=== PATIENT | female | born 1990 | race Caucasian/White ===

== ENCOUNTER 2017-08-03 12:23 | Emergency (ER) | payer OTHER ==
[~2017-08-03] VITALS: Ht 165.1 cm; Wt 52.2 kg
[~2017-08-03 12:23] MED LIST: FAMO-131 PO
[2017-08-03 12:50] VITALS: BP 112/69
[2017-08-03] MEDS ORDERED: ACETAMINOPHEN ES 500 MG TABLET PO ONE (13:30)
[2017-08-03] MEDS ORDERED: PSEUDOEPHEDRINE HCL 30 MG TABLET PO ONE (13:30)
[2017-08-03] MEDS ORDERED: IBUPROFEN 600 MG TABLET PO ONE ×2 (13:30→14:42)
[2017-08-03] MEDS ORDERED: ACETAMINOPHEN ES 500 MG TABLET ONE (14:42)
[2017-08-03] MEDS ORDERED: PSEUDOEPHEDRINE HCL 30 MG TABLET ONE (14:42)
== END 2017-08-03 15:03 | disposition home or self-care (01) ==
LOC: ER 12:25
DX: J40 Bronchitis, not specified as acute or chronic (principal); Z88.1 Allergy status to other antibiotic agents
CPT/HCPCS: 71010; 99283; A4606; Z7610

== ENCOUNTER 2018-04-26 12:41 | Emergency (ER) | payer SELFPAY ==
[~2018-04-26] VITALS: Ht 165.1 cm; Wt 47.6 kg
[2018-04-26] MEDS ORDERED: ACETAMINOPHEN ES 500 MG TABLET ONE (14:19)
[2018-04-26] MEDS ORDERED: ACETAMINOPHEN 325 MG TABLET PO ONE (14:30)
--- NOTE | 2018-04-26 14:30 | NUR ---
BILATERAL BREAST PAIN X 1 WEEK,NO TRAUMA. PT AAOX3, VSS. DENIES CP, SOB, DIZZINESS, N/V @THIS TIME. PT SEEN & EVAL'D BY EVY BREEN. @ BS. WILL CONT TO MONITOR.
[2018-04-26] MEDS: ACETAMINOPHEN 325 MG TABLET PO ONE (14:59)
[2018-04-26 15:59] VITALS: BP 118/74
--- NOTE | 2018-04-26 16:01 | NUR ---
Patient discharged to home in stable condition. Written and verbal after care instructions given. Patient verbalizes understanding of instruction.
== END 2018-04-26 16:01 | disposition home or self-care (01) ==
LOC: ER 12:45
DX: N64.4 Mastodynia (principal); Z90.89 Acquired absence of other organs; Z88.1 Allergy status to other antibiotic agents
CPT/HCPCS: 76641-TC; 84703-TC; A4606; Z7610

== ENCOUNTER 2018-09-08 11:28 | Emergency (ER) | payer SELFPAY ==
[~2018-09-08] VITALS: Ht 162.6 cm; Wt 49.0 kg
--- NOTE | 2018-09-08 11:28 | NUR ---
PT BIBHUSBAND FROM HOME FOR VAGINAL ITCHING AND PAIN X 10 DAYS, PT AAOX4, RESPIRATIONS EVEN AND UNLABORED, NO SOB, NAD NOTED, PENDING MD TOMLIN
--- NOTE | 2018-09-08 12:12 | NUR ---
URINE COLLECTED AND SENT TO LAB
[2018-09-08 12:19] LABS: APPEARANCE,URINE Clear (CLEAR); BILIRUBIN,URINE Negative (NEGATIVE); BLOOD, URINE Negative Ery/uL (NEGATIVE); COLOR,URINE Yellow (YELLOW); KETONES,URINE Negative (NEGATIVE); LEUKOCYTE ESTERASE ,URINE Trace (NEGATIVE); NITRITE, URINE Negative (NEGATIVE); PROTEIN,URINE Negative (NEGATIVE); UGLUCOSE Negative (NEGATIVE); UROBILINOGEN,URINE 0.2 EU/dL (0.2)
[2018-09-08 12:24] LABS: BACTERIA,URINE None seen /HPF (None Seen); RBC,URINE 0-2 /HPF (0-2); SQUAMOUS EPITHELIAL CELL,UR None Seen /HPF (None Seen); WBC,URINE 0-2 /HPF (0-3)
[2018-09-08] MEDS ORDERED: AZITHROMYCIN 250 MG TABLET ONE (12:51)
[2018-09-08] MEDS ORDERED: LIDOCAINE /MPF 1% VIAL 5 ML VIAL ONE (12:51)
[2018-09-08] MEDS ORDERED: CEFTRIAXONE 500 MG VIAL ONE (12:51)
--- NOTE | 2018-09-08 12:54 | NUR ---
Patient discharged to home in stable condition. Written and verbal after care instructions given. Patient verbalizes understanding of instruction.
[2018-09-08] MEDS ORDERED: AZITHROMYCIN 250 MG TABLET PO ONE (13:00)
[2018-09-08] MEDS ORDERED: CEFTRIAXONE 500 MG VIAL IM ONE (13:00)
[2018-09-08 13:03] VITALS: BP 121/74
== END 2018-09-08 13:30 | disposition home or self-care (01) ==
LOC: ER 11:31
DX: N72 Inflammatory disease of cervix uteri (principal); Z90.89 Acquired absence of other organs; Z88.1 Allergy status to other antibiotic agents
CPT/HCPCS: 81001; 84703; 87210; 87491; 87591; 96372; 99283; A4606; J0696; J3490; Z7610; 81000-TC

== ENCOUNTER 2018-10-04 00:26 | Emergency (ER) | payer OTHER ==
[~2018-10-04] VITALS: Ht 162.6 cm; Wt 49.9 kg
[2018-10-04 00:37] VITALS: BP 131/92
[2018-10-04] MEDS ORDERED: HYDROCODONE/APAP 5/325MG 1 EACH TABLET PO ONE (02:00)
[2018-10-04] MEDS ORDERED: HYDROCODONE/APAP 5/325MG 1 EACH TABLET ONE (02:21)
== END 2018-10-04 02:28 | disposition home or self-care (01) ==
LOC: ER 00:26
DX: M25.531 Pain in right wrist (principal); Z90.89 Acquired absence of other organs; Z88.1 Allergy status to other antibiotic agents; Z79.899 Other long term (current) drug therapy
CPT/HCPCS: 73110

== ENCOUNTER 2019-01-05 02:34 | Emergency (ER) | payer OTHER ==
[~2019-01-05] VITALS: Ht 165.1 cm; Wt 50.8 kg
[2019-01-05 02:50] VITALS: BP 102/70
--- NOTE | 2019-01-05 02:50 | NUR ---
PT BIBSELF C/O N/V/D X 8 HOURS. PT AOX4. NAD NOTED. RESP EVEN AND UNLABORED. PT ON MONITOR IN BED 16 WITH AT BEDSIDE. WILL CONTINUE TO MONITOR.
[2019-01-05] MEDS ORDERED: ONDANSETRON HCL/PF 4 MG/2 ML VIAL ONE (03:10)
--- NOTE | 2019-01-05 03:17 | NUR ---
BLOOD DRAWN AND GIVEN TO LAB
[2019-01-05 03:26] LABS: CALCIUM, SERUM 9.2 mg/dL (8.5-10.1); CREATININE 0.7 mg/dL (0.6-1.3); POTASSIUM 4.2 mmol/L (3.5-5.1)
[2019-01-05 03:28] LABS: BASOPHILS % (AUTO) 0.2 % (0.0-2.0); HEMATOCRIT 43 % (33-45); HEMOGLOBIN 14.9 g/dL (11.5-14.8); LYMPHOCYTES # (AUTO) 0.3 /CMM (0.8-4.8); LYMPHOCYTES % (AUTO) 2.8 % (20.0-44.0); MEAN CORPUSCULAR HGB CONC 35 g/dl (31.0-36.0); MEAN CORPUSCULAR VOLUME 88 fL (82-100); MONOCYTES # (AUTO) 0.3 /CMM (0.1-1.30); MONOCYTES % (AUTO) 3.4 % (2.0-12.0); NEUTROPHILS # (AUTO) 8.8 /CMM (1.8-8.9); NEUTROPHILS % (AUTO) 93.6 % (43.0-81.0); PLATELET COUNT (AUTO) 225 /CMM (150-450); RED BLOOD CELL COUNT(AUTO) 4.91 MIL/uL (4.0-5.2); WHITE BLOOD COUNT (AUTO) 9.4 K/uL (4.3-11.0)
[2019-01-05] MEDS ORDERED: ONDANSETRON HCL/PF 4 MG/2 ML VIAL IVP ONE (03:30)
[2019-01-05] MEDS ORDERED: IV NS 0.9% 1,000 ML BAG IV ONE (03:30)
--- NOTE | 2019-01-05 03:30 | NUR ---
ADDENDUM: Normal saline 1 liter (IV-WO) : start time: 0330 ; end time: 0400 : IV site: LAC 20 Port #1
[2019-01-05 03:31] LABS: ALBUMIN 4.5 g/dL (3.4-5.0); BILIRUBIN,DIRECT 0.1 mg/dL (0.0-0.2); BILIRUBIN,TOTAL 0.9 mg/dL (0.2-1.0); TOTAL PROTEIN, SERUM 8.5 g/dL (6.4-8.2)
[2019-01-05 04:56] LABS: APPEARANCE,URINE Clear (CLEAR); BILIRUBIN,URINE Negative (NEGATIVE); BLOOD, URINE Negative Ery/uL (NEGATIVE); COLOR,URINE Yellow (YELLOW); KETONES,URINE Negative (NEGATIVE); LEUKOCYTE ESTERASE ,URINE Negative (NEGATIVE); NITRITE, URINE Negative (NEGATIVE); PH,URINE 5.5 (5.0-8.0); PROTEIN,URINE Negative (NEGATIVE); UGLUCOSE Negative (NEGATIVE); UROBILINOGEN,URINE 0.2 EU/dL (0.2)
--- NOTE | 2019-01-05 05:14 | NUR ---
IV removed. Catheter intact and site benign. Pressure and 4x4 applied to site. No bleeding noted.Patient discharged to home in stable condition. Written and verbal after care instructions given. Patient verbalizes understanding of instruction.
== END 2019-01-05 05:17 | disposition home or self-care (01) ==
LOC: ER 02:37
DX: R11.10 Vomiting, unspecified (principal); R19.7 Diarrhea, unspecified; Z90.89 Acquired absence of other organs
CPT/HCPCS: 36415; 80048; 80076; 81001; 83690; 84703; 85025; 96374; 99283; J2405; J7030; 81000-TC

== ENCOUNTER 2019-12-19 22:09 | Emergency (ER) | payer MEDICAID, OTHER ==
[~2019-12-19] VITALS: Ht 167.6 cm; Wt 50.8 kg
--- NOTE | 2019-12-19 22:30 | NUR ---
PT AAOX4. C/O DYSURIA X3 DAYS -FEVER, -VAGINAL BLEED, -DISCHARGE. PLACED ON MONITOR AND PULSE OX. VSS. AT BEDSIDE FOR EVAL. AWAITING ORDERS.
[2019-12-19 22:47] LABS: APPEARANCE,URINE Clear (CLEAR); BILIRUBIN,URINE Negative (NEGATIVE); BLOOD, URINE Negative Ery/uL (NEGATIVE); COLOR,URINE Orange (YELLOW); KETONES,URINE Negative (NEGATIVE); LEUKOCYTE ESTERASE ,URINE Large (NEGATIVE); NITRITE, URINE Positive (NEGATIVE); PH,URINE 6.5 (5.0-8.0); PROTEIN,URINE Negative (NEGATIVE); UGLUCOSE 100 MG/DL mg/dL (NEGATIVE)
[2019-12-19] MEDS ORDERED: CEPHALEXIN MONOHYDRATE 500 MG CAPSULE PO ONE ×2 (22:56→23:00)
[2019-12-19] MEDS ORDERED: PHENAZOPYRIDINE HCL 200 MG TABLET ONE (22:57)
[2019-12-19] MEDS ORDERED: PHENAZOPYRIDINE HCL 200 MG TABLET PO ONE (23:00)
[2019-12-19 23:08] LABS: BACTERIA,URINE Few /HPF (None Seen); RBC,URINE 0-2 /HPF (0-2); SQUAMOUS EPITHELIAL CELL,UR Moderate /HPF (None Seen)
--- NOTE | 2019-12-19 23:30 | NUR ---
Patient discharged to home in stable condition. Written and verbal after care instructions given. Patient verbalizes understanding of instruction. ambulatory with a steady gait
[2019-12-19 23:31] VITALS: BP 124/71
== END 2019-12-19 23:32 | disposition home or self-care (01) ==
LOC: ER 22:09
DX: N39.0 Urinary tract infection, site not specified (principal); Z90.89 Acquired absence of other organs; Z79.899 Other long term (current) drug therapy
CPT/HCPCS: 81000-TC; 84703-TC; 87086-TC